=== PATIENT | female | born 1955 | race Caucasian/White ===

== ENCOUNTER → 2017-02-10 | Day surgery (SDC) | payer OTHER ==
--- NOTE | 2017-02-08 08:47 | MH ---
cc: VEE AZAR DATE OF ADMISSION 02/10/2017 HISTORY This is a 61-year-old female with chronic otitis for bilateral myringotomy and tube placement. PAST MEDICAL HISTORY Unremarkable PAST SURGICAL HISTORY Unremarkable REVIEW OF SYSTEMS, FAMILY HISTORY AND SOCIAL HISTORY Unremarkable PHYSICAL EXAMINATION A well-appearing patient no acute distress noted. HEENT: Exam reveals fluid behind each eardrum. Nose is clear. Oral cavity clear. NECK: Soft and supple, no masses noted. LUNGS: Clear. HEART: Regular rate and rhythm. ABDOMEN: Soft and nontender. EXTREMITIES: Without cyanosis, clubbing or edema. NEUROLOGIC: Alert and oriented, nonfocal neurologic exam. IMPRESSION A patient with chronic otitis for tubes. Instructed method of surgery and possible complication include anesthetic complications cardiac difficulty, pulmonary difficulty, stroke, or even . Surgical complications bleeding, infection, risk of early or late extrusion of tubes, tympanic membrane perforation, conductive or sensorineural hearing loss. The patient appeared to agree, accept and understand the above-mentioned risks and benefits. In addition, no guarantees or warranties regarding outcome of surgery were given. We will therefore proceed with surgery. MD QUINTIN Ulrich/EUGENIE /8:38 AM /8:43 AM
[~2017-02-10] VITALS: Ht 154.9 cm; Wt 68.3 kg
[~2017-02-10] MED LIST: ACETAMINOPHEN/HYDROcodone 325 MG/7.5 MG TAB PO PRN; CHLORHEXIDINE GLUCONATE 2 % 1 PACK (2 CLOTHS) TOPICAL PRN; INSULIN HUMAN REGULAR 1,000 UNITS/10 ML VIAL SQ PRN; LACTATED RINGER'S 1000 ML IV PRN; LIDOCAINE HCL 1% 20 ML VIAL ONE; MEDI220T PO; METOPROLOL TARTRATE 25 MG TAB PO PRN; MORPHINE SULFATE 4 MG/ML INJ IV PUSH PRN; NAPR220T95 PO; OFLOXACIN 0.3% OPTH SOLN 5 ML BTL ONE; ONDANSETRON HCL 4 MG/2 ML VIAL IV PUSH ONE; ONDANSETRON HCL 4 MG/2 ML VIAL IV PUSH PRN; POVIDONE IODINE 5% (ANTISEPSIS KIT) 4 APPLICATIONS EACH NARE PRN; PROPOFOL 200 MG/20 ML AMP IV ONE; SODIUM CHLORID 0.9% 500 ML IV PRN; TRAM50TA PO; VITA1000 PO; ZANA2CAP PO; [UNRECOGNIZED DRUG - CODE] PO
[2017-02-10 06:11] VITALS: BP 158/91; PULSE 68; RESP 20; TEMP 98.4; O2SAT 98
[2017-02-10 09:15] VITALS: BP 120/72; PULSE 62; RESP 16; TEMP 97.7; O2SAT 97
--- NOTE | 2017-02-10 16:54 | EKG ---
Date Performed: 02/10/2017 Time Performed: 06:22:54 PTAGE: 61 years EKG: Sinus rhythm NORMAL ECG NO PREVIOUS TRACING DOCTOR: Alphonse Champagne Interpretating Date/Time 02/10/2017 16:54:09
--- NOTE | 2017-02-21 09:01 | MP ---
cc: VEE AZAR DATE OF SURGERY: 02/10/2017 PREOPERATIVE DIAGNOSIS: 1. Tympanic membrane perforation. 2. serous otitis media PROCEDURE performed: 1. Right-sided tympanoplasty. 2. Left-sided tympanostomy with T-tube. OPERATING SURGEON: Vee Azar MD ANESTHESIA: General anesthesia. ESTIMATED BLOOD LOSS: Minimal. COMPLICATIONS: No complications. DESCRIPTION OF THE PROCEDURE IN DETAIL: Patient prepped, draped usual fashion. A small 1 cm incision was made post-auricularly on the right side and once this incision was made, a small fat graft was harvested from the subdermal fat and the incision was closed with interrupted chromic stitch. Under microscopic visualization, a perforation was noted in the right posterior inferior quadrant. The perforation was rimmed microscopically with an alligator forceps. Once it was rimmed with an alligator forceps, a tympanostomy T-tube was placed in good position and then the fat graft was placed alongside of the tympanostomy tube to completely close the remaining space. Oflox Ear Drops were then instilled under microscopic visualization. On the left side under microscopic visualization, anterior-inferior radial myringotomy incision made. Fluid suctioned from middle ear cavity and tympanostomy T-tube placed in good position along with Oflox. The patient tolerated the procedure well. Vee Azar MD [facility]/[place] /8:18 AM /8:59 AM
== END | disposition home or self-care (01) ==
LOC: HSDC 05:32
PROVIDERS: ATTEND Specialist
DX: H65.493 Other chronic nonsuppurative otitis media, bilateral (principal); H72.91 Unspecified perforation of tympanic membrane, right ear; J44.9 Chronic obstructive pulmonary disease, unspecified; Z01.810 Encounter for preprocedural cardiovascular examination
CPT/HCPCS: 00126; 20926; 69436; 69631; 93005; J2405; J3010; J7120